=== PATIENT | female | born 1950 | race Caucasian/White ===

== ENCOUNTER 2018-08-07 06:19 | Inpatient (IN) | payer OTHER ==
[~2018-08-07] VITALS: Ht 157.5 cm; Wt 54.8 kg
[2018-08-07] MEDS ORDERED: CeFAZolin 2 GM/DEXTROSE 50 ML IV ONE (06:35)
[2018-08-07] MEDS ORDERED: RINGERS SOLUTION,LACTATED 1,000 ML IV ONE ×4 (06:35→12:22)
[2018-08-07 07:24] LABS: GLUCOMETER DEV NAME(LOC) SDS 5; GLUCOSE,POINT OF CARE 85 MG/DL (70-110)
[2018-08-07] MEDS ORDERED: HYD25 PO (07:36)
[2018-08-07] MEDS ORDERED: VITAD1000 PO (07:36)
[2018-08-07] MEDS ORDERED: OS500 PO (07:36)
[2018-08-07] MEDS ORDERED: SENN8.6T90 PO (07:36)
[2018-08-07] MEDS ORDERED: LIDO15CR11 TP (07:36)
[2018-08-07] MEDS ORDERED: ENOX40DI9 SQ (07:36)
[2018-08-07] MEDS ORDERED: ACET-784 PO (07:36)
[2018-08-07] MEDS ORDERED: CITA-106 PO (07:36)
[2018-08-07] MEDS ORDERED: AMLO-512 PO (07:36)
[2018-08-07] MEDS ORDERED: OLOP2.5D OU (07:36)
[2018-08-07] MEDS ORDERED: LIDO700A15 TP (07:36)
[2018-08-07] MEDS ORDERED: OXYC10 PO (07:36)
[2018-08-07] MEDS ORDERED: ATEN50TA PO (07:36)
[2018-08-07] MEDS ORDERED: FAMO20 PO (07:36)
[2018-08-07] MEDS ORDERED: FLUT16H NASAL (07:36)
[2018-08-07] MEDS ORDERED: MOM30 PO (07:36)
[2018-08-07] MEDS ORDERED: ALEN70TA48 PO (07:36)
[2018-08-07] MEDS ORDERED: SIMV-259 PO (07:36)
[2018-08-07] MEDS ORDERED: DOCU250C91 PO (07:36)
[2018-08-07] MEDS ORDERED: MORP15 PO (07:36)
[2018-08-07] MEDS ORDERED: BISA10S PR (07:36)
[2018-08-07] MEDS ORDERED: BUPIVACAINE HCL/PF 0.25% 30 ML VIAL ONE (12:08)
[2018-08-07] MEDS ORDERED: ACETAMINOPHEN 1000 MG/ISO-OSM 100 ML IV ONE (12:15)
[2018-08-07] MEDS ORDERED: FentaNYL CITRATE-PF 100 MCG/2 ML VIAL IVP PRN (12:15)
[2018-08-07] MEDS ORDERED: HYDROmorphone 2 MG/ML SYRINGE IVP PRN (12:15)
[2018-08-07] MEDS ORDERED: MEPERIDINE-PF 25 MG/ML VIAL IVP PRN (12:15)
[2018-08-07] MEDS ORDERED: POVIDONE-IODINE 30 GM OINTMENT TP ONE (12:16)
[2018-08-07] MEDS ORDERED: FentaNYL CITRATE-PF 100 MCG/2 ML VIAL ONE (13:01)
[2018-08-07] MEDS: CYCLOBENZAPRINE HCL 10 MG TABLET PO SCH ×2 (14:53→22:08)
[2018-08-07] MEDS: KETOROLAC TROMETHAMINE 30 MG/ML VIAL IVP SCH ×2 (14:53→22:07)
[2018-08-07 15:01] VITALS: BP 145/75
[2018-08-07] MEDS ORDERED: SODIUM CHLORIDE 0.9% 500 ML IV ONE (16:17)
[2018-08-07] MEDS: CeFAZolin 1 GM/DEXTROSE 50 ML IV SCH ×2 (18:31→23:33)
[2018-08-07] MEDS ORDERED: OXYGEN THERAPY IH SCH (20:00)
[2018-08-07 20:10] VITALS: BP 100/77
[2018-08-07] MEDS: HYDROmorphone 2 MG/ML SYRINGE IVP PRN (20:16)
[2018-08-07] MEDS: OxyCODONE HCL/ACETAMINOPHEN 5-325 MG TABLET PO PRN (23:33)
[2018-08-08 00:07] VITALS: BP 114/74
[2018-08-08] MEDS: HYDROmorphone 2 MG/ML SYRINGE IVP PRN ×9 (00:37→18:49)
[2018-08-08] MEDS: OxyCODONE HCL/ACETAMINOPHEN 5-325 MG TABLET PO PRN ×3 (04:05→17:26)
[2018-08-08 04:12] VITALS: BP 124/79
[2018-08-08] MEDS: CeFAZolin 1 GM/DEXTROSE 50 ML IV SCH (05:35)
[2018-08-08] MEDS ORDERED: FentaNYL CITRATE-PF 100 MCG/2 ML VIAL IVP ONE (05:53)
[2018-08-08] MEDS ORDERED: KETOROLAC TROMETHAMINE 60 MG/2 ML VIAL IM ONE (05:53)
[2018-08-08] MEDS ORDERED: LIDOCAINE/PF 2% 5 ML VIAL IM ONE (05:53)
[2018-08-08] MEDS ORDERED: ROCURONIUM BROMIDE 10 MG/ML 5 ML VIAL IVP ONE (05:53)
[2018-08-08] MEDS ORDERED: NEOSTIGMINE METHYLSULFATE 1 MG/ML 10 ML VIAL IVP ONE (05:53)
[2018-08-08] MEDS ORDERED: ONDANSETRON HCL 4 MG/2 ML VIAL IVP ONE (05:53)
[2018-08-08] MEDS ORDERED: PROPOFOL 1% 20 ML VIAL IVP ONE (05:53)
[2018-08-08] MEDS ORDERED: MIDAZOLAM HCL 2 MG/2 ML VIAL IVP ONE (05:53)
[2018-08-08] MEDS ORDERED: GLYCOPYRROLATE 0.2 MG/ML VIAL IM ONE (05:53)
[2018-08-08] MEDS ORDERED: NALOXONE HCL 0.4 MG/ML VIAL IVP ONE (05:53)
[2018-08-08] MEDS ORDERED: DEXAMETHASONE SOD PHOS 4 MG/ML VIAL IVP ONE (05:53)
[2018-08-08] MEDS ORDERED: ROPIVACAINE HCL 0.2% ED ONE (05:57)
[2018-08-08 07:28] VITALS: BP 147/87
[2018-08-08] MEDS: CYCLOBENZAPRINE HCL 10 MG TABLET PO SCH ×2 (08:52→16:11)
[2018-08-08] MEDS: KETOROLAC TROMETHAMINE 30 MG/ML VIAL IVP SCH ×2 (08:52→16:11)
[2018-08-08] MEDS ORDERED: ENOXAPARIN SODIUM 30 MG/0.3 ML PF SYRINGE SQ SCH (09:00)
[2018-08-08 11:33] VITALS: BP 133/86
[2018-08-08 16:00] VITALS: BP 142/86
[2018-08-08] MEDS ORDERED: IPRATROPIUM BROMIDE 0.5 MG/2.5 ML NEB SOLUTION NEB PRN (19:30)
[2018-08-08] MEDS ORDERED: MAGNESIUM HYDROXIDE SUSPENSION 30 ML UDCUP PO PRN (19:30)
[2018-08-08] MEDS ORDERED: HYDROCODONE/ACETAMINOPHEN 5-325 MG TABLET PO PRN (19:30)
[2018-08-08] MEDS ORDERED: ALBUTEROL SULFATE 2.5 MG/0.5 ML NEB SOLUTION NEB PRN (19:30)
[2018-08-08] MEDS ORDERED: ACETAMINOPHEN 325 MG TABLET PO PRN (19:30)
[2018-08-08] MEDS ORDERED: ONDANSETRON HCL 4 MG/2 ML VIAL IVP PRN (19:30)
[2018-08-08] MEDS ORDERED: ZOLPIDEM TARTRATE 5 MG TABLET PO PRN (19:30)
[2018-08-08] MEDS ORDERED: MORPHINE SULFATE 4 MG/ML SYRINGE IVP PRN (19:30)
[2018-08-08] MEDS ORDERED: BISACODYL 10 MG RECTAL RECTAL SUPPOSITORY PR PRN (19:30)
[2018-08-08] MEDS ORDERED: DOCUSATE SODIUM 100 MG CAPSULE PO SCH (21:00)
[2018-08-09] MEDS ORDERED: PANTOPRAZOLE SODIUM 40 MG/VIAL IVP SCH (09:00)
== END 2018-08-08 19:40 | DRG 517 ==
LOC: SURGERY 06:19 → 6N 06:20
PROVIDERS: ADMIT Orthopaedic Surgery; ATTEND Orthopaedic Surgery
PROC: 0QSD04Z Reposition Right Patella with Internal Fixation Device, Open Approach (ICD-10-PCS; principal; 2018-08-07 10:45)
DX: S82.001A Unspecified fracture of right patella, initial encounter for closed fracture (principal); W19.XXXA Unspecified fall, initial encounter; I10 Essential (primary) hypertension; Z87.01 Personal history of pneumonia (recurrent); Z90.710 Acquired absence of both cervix and uterus; Y93.89 Activity, other specified; Y92.89 Other specified places as the place of occurrence of the external cause; Y99.8 Other external cause status
CPT/HCPCS: 87081; 94760; 94761; 97116; 97162; 97530; G0378; J0131; J0690; J1100; J1170; J1650; J1885; J2250; J2310; J2405; J2704; J2795; J3010; J3490; J7040; J7120

== ENCOUNTER 2019-01-11 07:44 | Day surgery (SDC) | payer OTHER ==
[~2019-01-11] VITALS: Ht 152.4 cm; Wt 52.7 kg
[~2019-01-11 07:44] MED LIST: ACET-784 PO; ALEN70TA10 PO; AMLO-512 PO; ATEN50TA PO; BISA10S PR; CITA-106 PO; CeFAZolin 2 GM/DEXTROSE 50 ML IV ONE; DOCU250C91 PO; ENOX40DI9 SQ; FAMO20 PO; FLUT16H NASAL; HYD25 PO; LIDO15CR11 TP; LIDO700A15 TP; MOM30 PO; MORP15 PO; OLOP2.5D OU; OS500 PO; OXYC10 PO; RINGERS SOLUTION,LACTATED 1,000 ML IV ONE; SENN8.6T90 PO; SIMV-259 PO; VITAD1000 PO
[2019-01-11] MEDS ORDERED: GABA-531 PO (08:59)
[2019-01-11 09:30] LABS: GLUCOMETER DEV NAME(LOC) SDS.; GLUCOSE,POINT OF CARE 80 MG/DL (70-110)
[2019-01-11] MEDS ORDERED: BUPIVACAINE 0.25%/EPI 1:200,000/PF 10 ML VIAL ONE (11:04)
[2019-01-11] MEDS ORDERED: VANCOMYCIN HCL 1 GM/VIAL ONE (11:45)
[2019-01-11] MEDS ORDERED: DEXAMETHASONE SOD PHOS 4 MG/ML VIAL IVP ONE (12:00)
[2019-01-11] MEDS ORDERED: LIDOCAINE/PF 2% 5 ML VIAL INJ ONE (12:00)
[2019-01-11] MEDS ORDERED: MIDAZOLAM HCL 2 MG/2 ML VIAL IVP ONE (12:00)
[2019-01-11] MEDS ORDERED: FentaNYL CITRATE-PF 100 MCG/2 ML VIAL IVP ONE (12:00)
[2019-01-11] MEDS ORDERED: PROPOFOL 1% 20 ML VIAL IVP ONE (12:00)
[2019-01-11] MEDS ORDERED: ONDANSETRON HCL 4 MG/2 ML VIAL IVP ONE (12:00)
[2019-01-11] MEDS ORDERED: FentaNYL CITRATE-PF 100 MCG/2 ML VIAL IVP PRN (12:30)
[2019-01-11] MEDS ORDERED: HYDROmorphone 2 MG/ML SYRINGE ONE ×2 (12:31→14:05)
[2019-01-11] MEDS: HYDROmorphone 2 MG/ML SYRINGE IVP PRN ×3 (12:34→13:25)
[2019-01-11] MEDS ORDERED: HYDROmorphone 2 MG/ML SYRINGE IVP ONE ×3 (14:00→14:50)
[2019-01-11] MEDS ORDERED: ACETAMINOPHEN 1000 MG/ISO-OSM 100 ML IV ONE ×2 (14:00→14:05)
[2019-01-11] MEDS ORDERED: OXYGEN THERAPY IH SCH (20:00)
== END 2019-01-11 16:00 | disposition home or self-care (01) ==
LOC: SURGERY 07:44
PROVIDERS: ATTEND Orthopaedic Surgery
DX: T84.89XA Other specified complication of internal orthopedic prosthetic devices, implants and grafts, initial encounter (principal); Y83.8 Other surgical procedures as the cause of abnormal reaction of the patient, or of later complication, without mention of misadventure at the time of the procedure
CPT/HCPCS: 20680; 76000; 77071; 82962; 88300; J0131; J0690; J1100; J1170; J2250; J2405; J2704; J3010; J3370; J3490 ×2; J7120

== ENCOUNTER 2023-03-05 09:35 | Inpatient (IN) | payer OTHER ==
[~2023-03-05] VITALS: Ht 152.4 cm; Wt 50.0 kg
[~2023-03-05 09:35] MED LIST changes: -ACET-784 PO; -ALEN70TA10 PO; +AMLO-258 PO; -AMLO-512 PO; +ATEN-72 PO; -ATEN50TA PO; -BISA10S PR; +CHOL100018 PO; -CITA-106 PO; +CITA-144 PO; -CeFAZolin 2 GM/DEXTROSE 50 ML IV ONE; -DOCU250C91 PO; -ENOX40DI9 SQ; -FAMO20 PO; -FLUT16H NASAL; +FLUT16SP NASAL; +GABA-1181 PO; -HYD25 PO; -LIDO15CR11 TP; -LIDO700A15 TP; -MOM30 PO; -MORP15 PO; -OLOP2.5D OU; +OLOP2.5D12 OU; -OXYC10 PO; +OXYC10TA59 PO; -RINGERS SOLUTION,LACTATED 1,000 ML IV ONE; -SENN8.6T90 PO; -VITAD1000 PO
[2023-03-05] MEDS ORDERED: OXYC-618 PO (12:57)
[2023-03-05] MEDS ORDERED: HYDR-3422 PO (12:57)
[2023-03-05] MEDS ORDERED: CALC-462 PO (12:57)
[2023-03-05] MEDS ORDERED: DULO-114 PO (12:57)
[2023-03-05] MEDS ORDERED: CHOL25TA4 PO (12:57)
[2023-03-05] MEDS ORDERED: CETI10TA58 PO (12:57)
[2023-03-05] MEDS ORDERED: TRIA15CR49 TP (12:57)
[2023-03-05] MEDS ORDERED: VIBE75TA PO (12:57)
[2023-03-05] MEDS ORDERED: ROMO210S SQ (12:57)
[2023-03-05] MEDS ORDERED: TOLT2TAB20 PO (12:57)
[2023-03-05] MEDS ORDERED: MORPHINE SULFATE 4 MG/ML SYRINGE IVP ONE (13:00)
[2023-03-05] MEDS ORDERED: ONDANSETRON HCL 4 MG/2 ML VIAL IVP ONE (13:00)
[2023-03-05 13:06] LABS: HEMATOCRIT 33.9 % (36-46); HEMOGLOBIN 11.1 g/dL (12.0-16.0); LYMPHOCYTES # (AUTO) 1.5 K/uL (1.0-4.8); LYMPHOCYTES % (AUTO) 25.7 % (22.0-44.0); MEAN CORPUSCULAR HEMOGLOBIN 31.1 pg (26.0-34.0); MEAN CORPUSCULAR HGB CONC 32.7 G/dL (31.0-37.0); MEAN CORPUSCULAR VOLUME 95 fL (80-100); MONOCYTES # (AUTO) 0.8 K/uL (0.1-1.0); NEUTROPHILS # (AUTO) 3.5 K/uL (1.8-7.7); NEUTROPHILS % (AUTO) 58.3 % (40.0-70.0); PLATELET COUNT (AUTO) 287 K/uL (150-450); RED BLOOD CELL COUNT(AUTO) 3.57 MIL/uL (4.00-5.20); RED CELL DISTRIBUTION WIDTH 14.2 % (11.5-14.5)
[2023-03-05 13:16] LABS: ANION GAP 9 mmol/L (8-16); CARBON DIOXIDE 28 mmol/L (22-29); CHLORIDE 99 mmol/L (98-107); GLOMERULAR FILTR. RATE CALC > 60 mL/min (>60); GLUCOSE,RANDOM 94 mg/dL (70-110); POTASSIUM 4.2 mmol/L (3.5-5.1); SODIUM SERUM 136 mmol/L (136-145)
[2023-03-05 13:21] LABS: ALANINE AMINOTRANSFERASE 19 U/L (12-78); ALKALINE PHOSPHATASE 91 U/L (46-116); ASPARTATE AMINOTRANSFERASE 24 U/L (15-37); BILIRUBIN,TOTAL 0.6 mg/dL (0.1-1.0); TOTAL PROTEIN, SERUM 7.4 g/dL (6.4-8.2)
[2023-03-05] MEDS ORDERED: BISACODYL 10 MG RECTAL RECTAL SUPPOSITORY PR PRN (14:15)
[2023-03-05] MEDS ORDERED: ONDANSETRON HCL 4 MG/2 ML VIAL IVP PRN (14:15)
[2023-03-05] MEDS ORDERED: IPRATROPIUM BROMIDE 0.5 MG/2.5 ML NEB SOLUTION NEB PRN (14:15)
[2023-03-05] MEDS ORDERED: ACETAMINOPHEN 325 MG TABLET PO PRN (14:15)
[2023-03-05] MEDS ORDERED: ALBUTEROL SULFATE 2.5 MG/0.5 ML NEB SOLUTION NEB PRN (14:15)
[2023-03-05] MEDS ORDERED: HydrOXYzine HCL 50 MG TABLET PO PRN (14:15)
[2023-03-05] MEDS ORDERED: 0.9% SODIUM CHLORIDE 10 ML SYRINGE IVP PRN (14:15)
[2023-03-05] MEDS ORDERED: FLUTICASONE PROPIONATE 50 MCG/SPRAY 16 GM NASAL SPRAY NASAL PRN (14:15)
[2023-03-05] MEDS ORDERED: OxyCODONE HCL/ACETAMINOPHEN 5-325 MG TABLET PO PRN (14:45)
[2023-03-05] MEDS: HEPARIN SODIUM,PORCINE 5,000 UNITS/ML VIAL SQ SCH ×2 (15:27→23:28)
[2023-03-05] MEDS: TraMADol HCL 50 MG TABLET PO PRN ×2 (15:28→19:38)
[2023-03-05 19:24] LABS: APPEARANCE,URINE HAZY (CLEAR); BILIRUBIN,URINE NEGATIVE (NEGATIVE); GLUCOSE, URINE (UA) NEGATIVE (NEGATIVE); KETONES,URINE NEGATIVE (NEGATIVE); LEUKOCYTE ESTERASE ,URINE LARGE (NEGATIVE); NITRATE,URINE NEGATIVE (NEGATIVE); OCCULT BLOOD,URINE NEGATIVE (NEGATIVE); PH,URINE 5.5 (5.0-8.0); PROTEIN,URINE NEGATIVE (NEGATIVE); SPECIFIC GRAVITIY, URINE 1.018 (1.003-1.030); UROBILINOGEN,URINE <=1.0 mg/dL (<=1.0)
[2023-03-05 19:34] LABS: BACTERIA,URINE Many /HPF (None Seen); RBC,URINE 0-2 /HPF (0-2); SQUAMOUS EPITHELIAL CELL,UR Few /LPF (None Seen); WBC,URINE 26-50 /HPF (0-5)
[2023-03-05 20:30] VITALS: BP 98/60
[2023-03-05] MEDS: DOCUSATE SODIUM 100 MG CAPSULE PO SCH (21:00)
[2023-03-05] MEDS: TRIAMCINOLONE 0.1% 15 GM CREAM TP SCH (22:42)
[2023-03-05] MEDS: TOLTERODINE TARTRATE 2 MG TABLET PO SCH (22:42)
[2023-03-05 22:43] VITALS: BP 117/72
[2023-03-05] MEDS: MORPHINE SULFATE 4 MG/ML SYRINGE IVP PRN (22:43)
[2023-03-06 06:20] VITALS: BP 115/68
[2023-03-06] MEDS: MORPHINE SULFATE 4 MG/ML SYRINGE IVP PRN ×2 (06:48→11:34)
[2023-03-06 07:20] LABS: BASOPHILS % (AUTO) 1.2 % (0.0-2.0); EOSINOPHILS % (AUTO) 1.9 % (1.0-6.0); HEMATOCRIT 35.5 % (36-46); HEMOGLOBIN 11.7 g/dL (12.0-16.0); LYMPHOCYTES # (AUTO) 1.6 K/uL (1.0-4.8); LYMPHOCYTES % (AUTO) 33.4 % (22.0-44.0); MEAN CORPUSCULAR HEMOGLOBIN 31.4 pg (26.0-34.0); MEAN CORPUSCULAR VOLUME 95 fL (80-100); MONOCYTES # (AUTO) 0.7 K/uL (0.1-1.0); MONOCYTES % (AUTO) 13.6 % (2.0-9.0); NEUTROPHILS # (AUTO) 2.4 K/uL (1.8-7.7); NEUTROPHILS % (AUTO) 49.9 % (40.0-70.0); PLATELET COUNT (AUTO) 277 K/uL (150-450); RED BLOOD CELL COUNT(AUTO) 3.72 MIL/uL (4.00-5.20); RED CELL DISTRIBUTION WIDTH 14.1 % (11.5-14.5)
[2023-03-06 07:40] LABS: ALANINE AMINOTRANSFERASE 15 U/L (12-78); ALBUMIN 3.5 g/dL (3.4-5.0); ALKALINE PHOSPHATASE 92 U/L (46-116); ANION GAP 8 mmol/L (8-16); ASPARTATE AMINOTRANSFERASE 24 U/L (15-37); BILIRUBIN,TOTAL 0.5 mg/dL (0.1-1.0); CALCIUM, TOTAL 8.6 mg/dL (8.8-10.5); CARBON DIOXIDE 27 mmol/L (22-29); CHLORIDE 101 mmol/L (98-107); CREATININE 0.77 mg/dL (0.60-1.30); GLOMERULAR FILTR. RATE CALC > 60 mL/min (>60); GLUCOSE,RANDOM 91 mg/dL (70-110); POTASSIUM 4.1 mmol/L (3.5-5.1); SODIUM SERUM 136 mmol/L (136-145); TOTAL PROTEIN, SERUM 6.9 g/dL (6.4-8.2)
[2023-03-06 08:13] VITALS: BP 110/66
[2023-03-06] MEDS: AmLODIPine BESYLATE 10 MG TABLET PO SCH (08:30)
[2023-03-06] MEDS: DOCUSATE SODIUM 100 MG CAPSULE PO SCH ×2 (08:30→20:21)
[2023-03-06] MEDS: CHOLECALCIFEROL (VIT D3) 1,000 UNITS [25 MCG] TABLET PO SCH (08:30)
[2023-03-06] MEDS: HEPARIN SODIUM,PORCINE 5,000 UNITS/ML VIAL SQ SCH ×3 (08:31→23:46)
[2023-03-06] MEDS: CITALOPRAM HYDROBROMIDE 20 MG TABLET PO SCH (08:32)
[2023-03-06] MEDS: ATENOLOL 50 MG TABLET PO SCH (08:32)
[2023-03-06] MEDS: CETIRIZINE HCL 10 MG TABLET PO SCH (08:32)
[2023-03-06] MEDS: TOLTERODINE TARTRATE 2 MG TABLET PO SCH ×2 (08:32→20:21)
[2023-03-06] MEDS: TRIAMCINOLONE 0.1% 15 GM CREAM TP SCH ×2 (08:33→20:21)
[2023-03-06] MEDS ORDERED: MISC MED-CONVERTED FROM AMBULATORY (Vibegron (Gemtesa) 75 MG) PO SCH (09:00)
[2023-03-06 15:19] VITALS: BP 100/58
[2023-03-06] MEDS ORDERED: MORPHINE SULFATE 2 MG/ML SYRINGE IVP PRN (15:45)
[2023-03-06] MEDS ORDERED: LIDOCAINE 5% TRANSDERMAL PATCH TD ONE (15:45)
[2023-03-06] MEDS: OxyCODONE HCL/ACETAMINOPHEN 10-325 MG TABLET PO PRN ×2 (17:18→23:47)
[2023-03-06 20:06] VITALS: BP 98/58
[2023-03-06 23:43] VITALS: BP 102/65
[2023-03-07 04:05] VITALS: BP 121/68
[2023-03-07] MEDS: OxyCODONE HCL/ACETAMINOPHEN 10-325 MG TABLET PO PRN ×3 (06:03→14:52)
[2023-03-07] MEDS: DOCUSATE SODIUM 100 MG CAPSULE PO SCH ×2 (09:00→10:02)
[2023-03-07] MEDS: AmLODIPine BESYLATE 10 MG TABLET PO SCH (10:02)
[2023-03-07] MEDS: TOLTERODINE TARTRATE 2 MG TABLET PO SCH (10:02)
[2023-03-07] MEDS: CITALOPRAM HYDROBROMIDE 20 MG TABLET PO SCH (10:02)
[2023-03-07] MEDS: CHOLECALCIFEROL (VIT D3) 1,000 UNITS [25 MCG] TABLET PO SCH (10:02)
[2023-03-07] MEDS: CETIRIZINE HCL 10 MG TABLET PO SCH (10:02)
[2023-03-07] MEDS: ATENOLOL 50 MG TABLET PO SCH (10:02)
[2023-03-07] MEDS: HEPARIN SODIUM,PORCINE 5,000 UNITS/ML VIAL SQ SCH ×2 (10:02→15:51)
[2023-03-07] MEDS: TRIAMCINOLONE 0.1% 15 GM CREAM TP SCH (10:03)
[2023-03-07] MEDS ORDERED: DOCU-385 PO ×2 (17:03→17:04)
[2023-03-07] MEDS ORDERED: IPRNEB IH (17:07)
[2023-03-07] MEDS ORDERED: CALCIUM [CALCIUM CARB 1250MG] 500 MG TABLET PO SCH (21:00)
[2023-04-04] MEDS ORDERED: [UNRECOGNIZED DRUG - OTHER] SQ SCH (09:00)
== END 2023-03-07 18:43 | DRG 605 ==
LOC: EMS 09:37 → AHU 18:20 → 6S 19:50
PROVIDERS: ADMIT Internal Medicine; ATTEND Internal Medicine
DX: S80.01XA Contusion of right knee, initial encounter (principal); S80.02XA Contusion of left knee, initial encounter; M17.0 Bilateral primary osteoarthritis of knee; I11.9 Hypertensive heart disease without heart failure; F32.9 Major depressive disorder, single episode, unspecified; E55.9 Vitamin D deficiency, unspecified; G89.4 Chronic pain syndrome; W01.0XXA Fall on same level from slipping, tripping and stumbling without subsequent striking against object, initial encounter; N32.81 Overactive bladder; Z87.891 Personal history of nicotine dependence; Z90.710 Acquired absence of both cervix and uterus; Y93.89 Activity, other specified; Y92.89 Other specified places as the place of occurrence of the external cause; Y99.8 Other external cause status; Z88.8 Allergy status to other drugs, medicaments and biological substances; Z79.899 Other long term (current) drug therapy
CPT/HCPCS: 71045; 80053; 81001; 85025; 87086; 87186; 87481; 93005; 97162; 97530; 99285; G0378; J1644; J2270; J2405; 36415-L1; 36415-TC